=== PATIENT | female | born 2000 | race Caucasian/White ===

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

== ENCOUNTER 2018-03-25 11:58 | Inpatient (IN) | payer OTHER ==
[2018-03-25] MEDS ORDERED: hydrALAZINE HCL 20 MG/ML 1 ML VIAL IVP PRN ×2 (12:16)
[2018-03-25] MEDS ORDERED: LABETALOL 5 MG/ML VIAL MDV IVP PRN ×2 (12:16)
[2018-03-25] MEDS: LACTATED RINGERS 1,000 ML IV SCH ×3 (12:27→23:38)
[2018-03-25 12:44] LABS: Glucose,Whole Blood 102 mg/dL (75-99)
[2018-03-25 13:04] LABS: Basophils % (A) 0 %; Eosinophils # (A) 0.1 k/uL (0-0.7); Eosinophils % (A) 1 %; HCT 25.8 % (34.0-46.0); HGB 8.4 gm/dL (11.4-16.0); Hypochromasia Marked; Lymphocytes # (A) 1.5 k/uL (1.0-4.8); Lymphocytes % (A) 17 %; MCH 24.6 pg (25.0-35.0); MCHC 32.4 g/dL (31.0-37.0); MCV 75.9 fL (80.0-100.0); Microcytosis Slight; Monocytes # (A) 0.3 k/uL (0-1.0); Monocytes % (A) 4 %; Neutrophils # (A) 6.5 k/uL (1.3-7.7); Neutrophils % (A) 76 %; Platelet Count 133 k/uL (150-450); Poikilocytosis Slight; RDW 15.6 % (11.5-15.5); WBC 8.5 k/uL (4.0-11.0)
[2018-03-25 13:11] LABS: ALT 15 U/L (9-52); AST 20 U/L (14-36); Blood Urea Nitrogen 11 mg/dL (7-17); Glucose 99 mg/dL (74-99); LDH 655 U/L (313-618); Uric Acid 3.9 mg/dL (3.7-7.4)
--- NOTE | 2018-03-25 13:27 | US ---
EXAMINATION TYPE: US OB >= 14 wk fetus DATE OF EXAM: 03/25/2018 COMPARISON: None CLINICAL HISTORY: no care TECHNIQUE: Transabdominal (TA) GESTATIONAL AGE / DATING Physician Established: Not yet established Dates by LMP: may 2017 Dates by First Scan: No previous this is first scan Dates by Current Scan: (39 weeks/0 days) EDC: 04/01/2018 SURVEY IUP: Single PLACENTA: Fundal PREVIA: unable to see tip BERNARDA: 0 cm Oligohydramnios CERVICAL LENGTH (transabdominal: norm > 3.0cm): unable to visualize, nurse states not necessary due t o patient already dilated BIOMETRY PRESENTATION: Vertex BPD: 9.4 cm 38 weeks / 2 days HC: 33.2 cm 37 weeks / 6 days AC: 36.9 cm 40 weeks / 5 days FL: 7.9 cm 40 weeks / 2 days ESTIMATED WEIGHT IN GRAMS: 3944 grams ESTIMATED WEIGHT IN LBS/OZ: 8 lbs. 11 oz. HC/AC: 0.9 Normal FL/AC: 21.3 Normal HEART RATE: 136 bpm RHYTHM: Normal No care or prior ultrasound. No fluid seen. Unable to see head well for measurements, head m easurements are probably underestimated due to very low position. IMPRESSION: Could not identify any definite amniotic fluid correlate for oligohydramnios. Note is made rodrigue lul was not requested and therefore not performed. By current scan the estimated fetus is 39 weeks 0 days with a heart rate of 136 bpm in a vertex presentation. Note is made due to the limitations exam the tip of the placenta could not be seen and therefore asse ssment of placental previa is nondiagnostic.
[2018-03-25 13:30] LABS: INR 0.8 (<1.2); Prothrombin Time 9.4 sec (9.0-12.0)
[2018-03-25 13:31] LABS: Appearance,Urine Clear (Clear); Bacteria,Urine Rare /hpf; Bilirubin,Urine Negative (Negative); Blood,Urine Large (Negative); Color,Urine Yellow; Glucose,Urine (UA) Negative (Negative); Ketones,Urine Negative (Negative); Leukocyte Esterase,Urine Large (Negative); Mucus,Urine Rare /hpf; Nitrite,Urine Negative (Negative); Protein,Urine 2+ (Negative); RBC,Urine 6 /hpf (0-5); Specific Gravity,Urine 1.016 (1.001-1.035); Squamous Epithelial Cell,Urine 2 /hpf (0-4); WBC,Urine 32 /hpf (0-5)
[2018-03-25 13:39] LABS: Amphetamine Screen,Urine Not Detected (NotDetected); Barbiturate Screen,Urine Not Detected (NotDetected); Benzodiazepines Screen,Urine Not Detected (NotDetected); Cocaine Screen,Urine Not Detected (NotDetected); Methadone Screen, Urine Not Detected (NotDetected); Opiate Screen,Urine Not Detected (NotDetected); Oxycodone Screen, Urine Not Detected (NotDetected); Phencyclidine Screen,Urine Not Detected (NotDetected); Tricyclic Antidepressant,Urine Not Detected (NotDetected); Urn Cannabinoid Scrn Not Detected (NotDetected)
[2018-03-25] MEDS ORDERED: TERBUTALINE 1 MG/ML VIAL SQ PRN (13:45)
[2018-03-25] MEDS ORDERED: CARBOPROST TROMETHAMINE 250 MCG/ML 1 ML AMP IM PRN (13:45)
[2018-03-25] MEDS ORDERED: LIDOCAINE 0.5% (PF) 5 MG/ML (50 ML SDV) SQ PRN (13:45)
[2018-03-25] MEDS ORDERED: METHYLERGONOVINE 0.2 MG/ML 1 ML AMP IM PRN (13:45)
[2018-03-25] MEDS ORDERED: OXYTOCIN 10 UNIT/ML 1 ML VIAL IM PRN (13:45)
[2018-03-25] MEDS ORDERED: PENICILLIN G POTASSIUM 5,000,000 UNIT in DEXTROSE 5% IN WATER 100 ML IVPB STA ×2 (13:53)
[2018-03-25] MEDS ORDERED: fentaNYL (PF) 50 MCG/ML 5 ML AMP ONE (14:01)
[2018-03-25] MEDS ORDERED: SODIUM CHLORIDE 0.9% 100 ML BAG ONE (14:01)
[2018-03-25] MEDS ORDERED: ROPIVACAINE 5MG/ML 20ML VIAL ONE (14:01)
[2018-03-25 15:28] VITALS: BMI 21.7
[2018-03-25] MEDS ORDERED: LABETALOL SYRINGE 5 MG/ML IVP PRN (15:51)
[2018-03-25] MEDS: OXYTOCIN 20 UNITS/1000 ML NS 1,000 ML IV SCH (16:07)
--- NOTE | 2018-03-25 16:17 | P.HPOB ---
History of Present Illness H&P Date: 03/25/18 Chief Complaint: , vaginal spotting The patient is a 17-year-old 3 para 2001 who presents at 41 and one sevenths weeks by last menstrual period dating with no care during the entire . Upon presentation, she is found to have several significantly elevated blood pressures in the range of 160/110 and was treated with hydralazine which normalized blood pressures after 2 doses. She denied any problems but, as noted above, has had no care whatsoever with an initial intention of adopting the baby out as paternity was uncertain. She denies alcohol or drug use. On labor and delivery, all signs are reassuring and she is found to be 6 cm dilated. Bedside ultrasound suggested that the infant is approximately 39 weeks based upon dating parameters. There is minimal fluid present suggesting the possibility of rupture of membranes for an unknown period of time. Obstetrical history: 3 para 2001 with 2 term vaginal deliveries without complications. Current statistics as are as above and are minimal secondary to no care. labs have been drawn and are noted in the chart. Gynecologic history: Unremarkable with no reported history of any infections to include STDs. Review of Systems Review of systems is confined to history of present illness. Past Medical History Past Medical History: No Reported History, GERD/Reflux History of Any Multi-Drug Resistant Organisms: None Reported Past Surgical History: Orthopedic Surgery Additional Past Surgical History / Comment(s): plate in foot Past Anesthesia/Blood Transfusion Reactions: No Reported Reaction Past Psychological History: No Psychological Hx Reported Smoking Status: Never smoker Past Alcohol Use History: None Reported Past Drug Use History: None Reported - Past Family History Mother Family Medical History: No Reported History Medications and Allergies Home Medications Medication Instructions Recorded Confirmed Type Pnv No.95/Ferrous Fum/Folic AC 1 each PO 03/25/18 History [ Multivitamin Tablet] Allergies Allergy/AdvReac Type Severity Reaction Status Date / Time No Known Allergies Allergy Verified 03/25/18 13:58 Exam Vital Signs Temp Pulse Resp BP Pulse Ox 03/25/18 15:22 98.4 F 99 16 168/114 03/25/18 12:15 98.5 F 93 16 160/109 95 Intake and Output 03/25/18 03/25/18 03/25/18 06:59 14:59 22:59 Intake Total 1100 Balance 1100 Intake: Intake, IV Titration 1100 Amount Lactated Ringers 1,000 ml 1000 @ 125 mls/hr IV .Q8H [facility] Rx#:[id number] Penicillin G Potassium 5, 100 000,000 unit In Dextrose 5% in Water 100 ml @ 100 mls/hr IVPB ONCE STA Rx#: [id number] Other: # Voids 1 Weight 61.235 kg In general, this is a well-developed, well-nourished white female in no acute distress. Her heart has a regular rhythm and rate without murmur. Her lungs are clear to auscultation bilaterally in all dorsey. Her abdomen is gravid, nondistended, has normal active bowel sounds, is soft, nontender, and without any palpable masses aside from uterine fundus. Her extremities are without any cyanosis, clubbing, or significant edema and are nontender to palpation bilaterally. Digital cervical examination most recently performed by the nursing staff demonstrates her cervix to be 7+ centimeters dilated, 80% effaced , vertex in presentation at -1 station. Results Result Diagrams: 03/25/18 12:43 03/25/18 12:43 Abnormal Lab Results - Last 24 Hours (Table) 03/25/18 03/25/18 03/25/18 Range/Units 12:43 12:43 12:43 RBC 3.40 L (3.80-5.40) m/uL Hgb 8.4 L (11.4-16.0) gm/dL Hct 25.8 L (34.0-46.0) % MCV 75.9 L (80.0-100.0) fL MCH 24.6 L (25.0-35.0) pg RDW 15.6 H (11.5-15.5) % Plt Count 133 L (150-450) k/uL Creatinine 0.44 L (0.52-1.04) mg/dL POC Glucose (mg/dL) 102 H (75-99) mg/dL Lactate Dehydrogenase 655 H (313-618) U/L Urine Protein (Negative) Urine Blood (Negative) Ur Leukocyte Esterase (Negative) Urine RBC (0-5) /hpf Urine WBC (0-5) /hpf Urine Bacteria (None) /hpf Urine Mucus (None) /hpf U Random Total Protein (<12) mg/dL 03/25/18 03/25/18 Range/Units 13:16 13:16 RBC (3.80-5.40) m/uL Hgb (11.4-16.0) gm/dL Hct (34.0-46.0) % MCV (80.0-100.0) fL MCH (25.0-35.0) pg RDW (11.5-15.5) % Plt Count (150-450) k/uL Creatinine (0.52-1.04) mg/dL POC Glucose (mg/dL) (75-99) mg/dL Lactate Dehydrogenase (313-618) U/L Urine Protein 2+ H (Negative) Urine Blood Large H (Negative) Ur Leukocyte Esterase Large H (Negative) Urine RBC 6 H (0-5) /hpf Urine WBC 32 H (0-5) /hpf Urine Bacteria Rare H (None) /hpf Urine Mucus Rare H (None) /hpf U Random Total Protein 140 H (<12) mg/dL Assessment and Plan (1) No care in current Current Visit: Yes Status: Acute Code(s): O09.30 - SUPRVSN OF PREG W INSUFFICIENT ANTENAT CARE, UNSP TRIMESTER SNOMED Code(s): 0003619362471 (2) induced hypertension Current Visit: Yes Status: Acute Code(s): O13.9 - GESTATIONAL HTN W/O SIGNIFICANT PROTEINURIA, UNSP TRIMESTER SNOMED Code(s): 73575768 (3) Active labor at term Current Visit: Yes Status: Acute Code(s): ABD7988 - SNOMED Code(s): 41464013 Plan: The patient has been admitted for active management of labor. Antibody prophylaxis has been started and labs ordered. She has been given 2 doses of hydralazine and now is requiring a dose of labetalol to manage her blood pressures. There is consideration for addition of magnesium sulfate though laboratory workup for help syndrome has been otherwise negative. Pitocin augmentation will be added and we will anticipate normal spontaneous vaginal delivery. rehabilitation services manager consult will be sought following delivery for the lack of care.
[2018-03-25] MEDS ORDERED: diphenhydrAMINE 50 MG CAP PO PRN (16:57)
[2018-03-25] MEDS ORDERED: IBUPROFEN 600 MG TAB PO PRN (16:57)
[2018-03-25] MEDS ORDERED: HYDROCORTISONE 2.5% RECTAL CREAM 30 GM TUBE RECTAL PRN (16:57)
[2018-03-25] MEDS ORDERED: SIMETHICONE 80 MG CHEWABLE PO PRN (16:57)
[2018-03-25] MEDS ORDERED: diphenhydrAMINE 50 MG/ML 1 ML VIAL IVP PRN ×2 (16:57)
[2018-03-25] MEDS ORDERED: HYDROcodone/APAP 5-325MG 1 EACH TAB PO PRN (16:57)
[2018-03-25] MEDS ORDERED: diphenhydrAMINE 25 MG CAP PO PRN (16:57)
[2018-03-25] MEDS ORDERED: BENZOCAINE/MENTHOL SPRAY 1 GM/SPRAY AEROSOL TOPICAL PRN (16:57)
[2018-03-25] MEDS ORDERED: WITCH HAZEL 1 EACH MED..PAD TOPICAL PRN (16:57)
[2018-03-25] MEDS ORDERED: HYDROcodone/APAP 7.5-325MG 1 EACH TAB PO PRN (16:57)
[2018-03-25] MEDS ORDERED: ZOLPIDEM 5 MG TAB PO PRN (16:57)
[2018-03-25] MEDS ORDERED: OXYTOCIN 20 UNITS/1000 ML NS 1,000 ML IV SCH (17:00)
[2018-03-25] MEDS ORDERED: MAGNESIUM SULFATE-WATER PMX 4 GM in WATER FOR INJECTION 1 100ML.BAG IVPB ONE (17:02)
--- NOTE | 2018-03-25 17:08 | P.PROBDLV ---
Vaginal Delivery Note - . Vaginal Delivery Note: The patient is a 17-year-old 3 para 2 scissors or 2 admitted through triage at 41 and one sevenths by last menstrual period dating, approximately 39- 0/7 by ultrasound dating on labor and delivery. She is admitted in active labor with a diagnosis of mild preeclampsia or -induced hypertension. Blood pressures upon admission were in the range of 160s over 110s and required 2 doses of hydralazine to normalize. Laboratory workup for preeclampsia was otherwise normal. The patient has had no care during the entire . She denies any other complications during the . On labor and delivery, she had bedside ultrasound performed which demonstrated also minimal fluid leading to the presumptive diagnosis of either oligohydramnios or prolonged rupture of membranes. Antibiotic prophylaxis was started. Ultimately Pitocin augmentation was started after placement of an epidural for analgesia. She progressed fairly quickly to complete and then pushed over the course of 2 contractions to a normal spontaneous vaginal delivery of a viable 8 lbs. 15 oz. baby boy with Apgars of 8 at 1 minute and 9 at 5 minutes delivered in the left occiput anterior position. There was a nuchal cord 1 which was reduced following delivery of the . The placenta was delivered spontaneously, intact, and grossly normal with a grossly normal three-vessel cord inserted approximate 4 cm from the margin of the placental disc. There are no lacerations of the perineum, vagina, or cervix. Estimated blood loss for the case was 200 mL or perhaps less. There were no complications aside from the lack of care in presentation with preeclampsia. All sponge, instrument, and needle counts were correct. Both mother and are resting comfortably in recovery of the has been taken the special care nursery for further evaluation secondary to lack of care and possible prolonged rupture of membranes. The patient will be started on magnesium sulfate 4 g IV loading dose followed by 2 g per hour with the intention of continuing this for 24 hours at which time it will be discontinued. Close attention will be paid to her ongoing blood pressures as well.
[2018-03-25] MEDS ORDERED: PENICILLIN G POTASSIUM 2,500,000 UNIT in DEXTROSE 5% IN WATER 100 ML IVPB SCH ×2 (18:00)
[2018-03-25] MEDS: MAGNESIUM SULFATE-WATER PMX 20 GM in WATER FOR INJECTION 1 500ML.BAG IV SCH (18:17)
[2018-03-25] MEDS ORDERED: MISOPROSTOL 200 MCG TAB RECTAL STA (20:02)
[2018-03-25] MEDS: SENNOSIDES-DOCUSATE SODIUM 1 EACH TAB PO SCH (20:45)
[2018-03-25] MEDS: ACETAMINOPHEN TAB 325 MG TAB PO PRN (21:28)
[2018-03-25] MEDS: LABETALOL 100 MG TAB PO SCH (22:46)
[2018-03-26] MEDS: MAGNESIUM SULFATE-WATER PMX 20 GM in WATER FOR INJECTION 1 500ML.BAG IV SCH (04:26)
[2018-03-26 05:37] LABS: Anisocytosis Slight; Basophils % (A) 0 %; Eosinophils % (A) 0 %; HCT 22.7 % (34.0-46.0); Hypochromasia Moderate; Lymphocytes # (A) 1.6 k/uL (1.0-4.8); Lymphocytes % (A) 18 %; MCH 23.3 pg (25.0-35.0); MCHC 30.7 g/dL (31.0-37.0); MCV 75.7 fL (80.0-100.0); Mean Platelet Volume 8.5; Microcytosis Slight; Monocytes # (A) 0.4 k/uL (0-1.0); Monocytes % (A) 4 %; Neutrophils # (A) 6.7 k/uL (1.3-7.7); Neutrophils % (A) 76 %; Platelet Count 134 k/uL (150-450); Poikilocytosis Slight; RBC 2.99 m/uL (3.80-5.40); RDW 16.1 % (11.5-15.5); WBC 8.9 k/uL (4.0-11.0)
[2018-03-26] MEDS: ACETAMINOPHEN TAB 325 MG TAB PO PRN ×3 (07:15→20:35)
[2018-03-26] MEDS: SENNOSIDES-DOCUSATE SODIUM 1 EACH TAB PO SCH (09:17)
[2018-03-26] MEDS: LABETALOL 100 MG TAB PO SCH ×2 (09:17→20:35)
--- NOTE | 2018-03-26 09:26 | P.PNOBGPC ---
Subjective - Subjective Interval history: Patient is tolerating magnesium well. Patient reports: Reports appetite normal, Reports voiding normally, Reports pain well controlled, Reports ambulating normally : doing well Objective - Vital Signs Latest vital signs: Vital Signs Temp Pulse Resp BP Pulse Ox 03/26/18 09:00 80 16 136/80 98 03/26/18 08:00 79 16 118/73 03/26/18 07:00 97.6 F 98 18 121/81 100 03/26/18 06:00 18 122/81 03/26/18 05:00 89 18 131/85 03/26/18 04:15 97.7 F 83 18 118/76 96 03/26/18 03:00 98.3 F 96 16 122/68 98 03/26/18 02:00 105 H 16 126/77 97 03/26/18 01:00 99 16 122/83 03/26/18 00:00 101 H 16 132/84 03/25/18 22:48 106 H 15 149/99 95 03/25/18 22:00 98.2 F 104 H 15 153/105 97 03/25/18 21:15 109 H 159/104 03/25/18 21:00 100 F H 99 18 153/95 97 03/25/18 19:48 110 H 16 136/95 97 03/25/18 18:48 98.6 F 101 H 18 142/94 98 03/25/18 18:33 99 18 132/87 98 03/25/18 18:18 95 16 143/87 95 03/25/18 17:48 96 16 141/90 95 03/25/18 17:33 99.3 F 112 H 16 133/88 97 03/25/18 17:18 103 H 16 166/96 03/25/18 17:03 99.8 F H 107 H 17 156/99 03/25/18 16:48 99.7 F H 116 H 18 154/94 03/25/18 15:22 98.4 F 99 16 168/114 03/25/18 12:15 98.5 F 93 16 160/109 95 Intake and Output 03/25/18 03/26/18 03/26/18 22:59 06:59 14:59 Intake Total 1648.9 1280.5 250 Output Total 400 1525 400 Balance 1248.9 -244.5 -150 Intake: IV 250 250 Lactated Ringers 1,000 ml 150 150 @ 125 mls/hr IV .Q8H [facility] Rx#:[id number] Magnesium Sulfate-Water 100 100 Pmx 20 gm In Water For Injection 1 500ml.bag @ 2 GM/HR 50 mls/hr IV .Q10H [facility] Rx#:[id number] Intake, IV Titration 1648.9 1030.5 Amount Lactated Ringers 1,000 ml 328 317.5 @ 125 mls/hr IV .Q8H [facility] Rx#:[id number] Magnesium Sulfate-Water 219 713 Pmx 20 gm In Water For Injection 1 500ml.bag @ 2 GM/HR 50 mls/hr IV .Q10H [facility] Rx#:[id number] Magnesium Sulfate-Water 100 Pmx 4 gm In Water For Injection 1 100ml.bag @ 300 mls/hr IVPB ONCE ONE Rx#:[id number] Oxytocin 20 Units/1000 ml 1.9 Ns 1,000 ml @ 1 MILLIUNIT/MIN 3 mls/hr IV .Q24H [facility] Rx#:[id number] Oxytocin 20 Units/1000 ml 1000 Ns 1,000 ml @ Per Protocol IV .Q0M [facility] Rx#: [id number] Output: Urine 400 1525 400 Other: # Voids 400 1 - Exam Extremities: Present: normal Abdomen: Present: normal appearance, soft. Absent: distention, tenderness Incision: Present: normal, dry, intact Uterus: Present: normal, firm - Labs Labs: Abnormal Lab Results - Last 24 Hours (Table) 03/25/18 03/25/18 03/25/18 Range/Units 12:43 12:43 12:43 RBC 3.40 L (3.80-5.40) m/uL Hgb 8.4 L (11.4-16.0) gm/dL Hct 25.8 L (34.0-46.0) % MCV 75.9 L (80.0-100.0) fL MCH 24.6 L (25.0-35.0) pg MCHC (31.0-37.0) g/dL RDW 15.6 H (11.5-15.5) % Plt Count 133 L (150-450) k/uL Creatinine 0.44 L (0.52-1.04) mg/dL POC Glucose (mg/dL) 102 H (75-99) mg/dL Lactate Dehydrogenase 655 H (313-618) U/L Urine Protein (Negative) Urine Blood (Negative) Ur Leukocyte Esterase (Negative) Urine RBC (0-5) /hpf Urine WBC (0-5) /hpf Urine Bacteria (None) /hpf Urine Mucus (None) /hpf U Random Total Protein (<12) mg/dL 03/25/18 03/25/18 03/26/18 Range/Units 13:16 13:16 05:25 RBC 2.99 L (3.80-5.40) m/uL Hgb 7.0 L (11.4-16.0) gm/dL Hct 22.7 L (34.0-46.0) % MCV 75.7 L (80.0-100.0) fL MCH 23.3 L (25.0-35.0) pg MCHC 30.7 L (31.0-37.0) g/dL RDW 16.1 H (11.5-15.5) % Plt Count 134 L (150-450) k/uL Creatinine (0.52-1.04) mg/dL POC Glucose (mg/dL) (75-99) mg/dL Lactate Dehydrogenase (313-618) U/L Urine Protein 2+ H (Negative) Urine Blood Large H (Negative) Ur Leukocyte Esterase Large H (Negative) Urine RBC 6 H (0-5) /hpf Urine WBC 32 H (0-5) /hpf Urine Bacteria Rare H (None) /hpf Urine Mucus Rare H (None) /hpf U Random Total Protein 140 H (<12) mg/dL Assessment and Plan (1) No care in current Current Visit: Yes Status: Acute Code(s): O09.30 - SUPRVSN OF PREG W INSUFFICIENT ANTENAT CARE, UNSP TRIMESTER SNOMED Code(s): 0433568377987 (2) induced hypertension Current Visit: Yes Status: Acute Code(s): O13.9 - GESTATIONAL HTN W/O SIGNIFICANT PROTEINURIA, UNSP TRIMESTER SNOMED Code(s): 74652147 (3) Active labor at term Current Visit: Yes Status: Acute Code(s): AQA5940 - SNOMED Code(s): 23190421 (4) Normal spontaneous vaginal delivery Current Visit: Yes Status: Acute Code(s): O80 - ENCOUNTER FOR FULL-TERM UNCOMPLICATED DELIVERY SNOMED Code(s): 00203006 (5) Preeclampsia Current Visit: Yes Status: Acute Code(s): O14.90 - UNSPECIFIED PRE-ECLAMPSIA , UNSPECIFIED TRIMESTER SNOMED Code(s): 779257042 Plan: Magnesium sulfate will be continued until 24 hours postdelivery at approximately 1700 hrs. Blood pressures are relatively stable with the addition of labetalol 100 mg twice daily. The currently remains and special care on oxygen supplementation but will have an attempted wean today. The patient has decided to keep the baby and adoption social worker consult is pending. Continue routine care with possible discharge home tomorrow pending stability of blood pressures.
[2018-03-26 15:29] LABS: N. gonorrhoeae,PCR Negative (Neg,Equiv); Neisseria Source Urine
[2018-03-26 15:37] LABS: C. trachomatis,PCR Positive (Neg,Equiv); Chlamydia trachomatis Source Urine
[2018-03-26] MEDS: OXYTOCIN 20 UNITS/1000 ML NS 1,000 ML IV SCH (17:30)
[2018-03-27] MEDS: SENNOSIDES-DOCUSATE SODIUM 1 EACH TAB PO SCH ×2 (02:25→13:30)
[2018-03-27] MEDS: MAGNESIUM SULFATE-WATER PMX 20 GM in WATER FOR INJECTION 1 500ML.BAG IV SCH (02:26)
[2018-03-27 04:29] LABS: HIV 1 AB Non-Reactive (Non-Reactive); HIV AB P24 Non-Reactive (Non-Reactive); HIV P24 AG Non-Reactive (Non-Reactive)
[2018-03-27 06:30] LABS: Basophils % (A) 0 %; Eosinophils # (A) 0.1 k/uL (0-0.7); Eosinophils % (A) 2 %; Hypochromasia Marked; Lymphocytes # (A) 1.6 k/uL (1.0-4.8); Lymphocytes % (A) 25 %; MCH 24.3 pg (25.0-35.0); MCHC 31.8 g/dL (31.0-37.0); MCV 76.5 fL (80.0-100.0); Mean Platelet Volume 6.6; Microcytosis Slight; Monocytes # (A) 0.3 k/uL (0-1.0); Monocytes % (A) 4 %; Neutrophils # (A) 4.3 k/uL (1.3-7.7); Neutrophils % (A) 67 %; Platelet Count 133 k/uL (150-450); Poikilocytosis Slight; RDW 15.8 % (11.5-15.5); WBC 6.4 k/uL (4.0-11.0)
[2018-03-27 06:38] LABS: HGB 6.3 gm/dL (11.4-16.0)
[2018-03-27 06:39] LABS: HCT 19.9 % (34.0-46.0)
[2018-03-27 06:42] LABS: ALT 21 U/L (9-52); AST 20 U/L (14-36); Blood Urea Nitrogen 9 mg/dL (7-17); LDH 1272 U/L (313-618)
[2018-03-27 06:59] LABS: Appearance,Urine Cloudy (Clear); Bacteria,Urine Rare /hpf; Bilirubin,Urine Negative (Negative); Blood,Urine Large (Negative); Color,Urine Red; Glucose,Urine (UA) Negative (Negative); Ketones,Urine Negative (Negative); Leukocyte Esterase,Urine Large (Negative); Mucus,Urine Few /hpf; Nitrite,Urine Negative (Negative); PH, Urine 6.5 (5.0-8.0); Protein,Urine 2+ (Negative); RBC,Urine >182 /hpf (0-5); Specific Gravity,Urine 1.026 (1.001-1.035); Squamous Epithelial Cell,Urine 4 /hpf (0-4); WBC,Urine >182 /hpf (0-5)
[2018-03-27] MEDS: ACETAMINOPHEN TAB 325 MG TAB PO PRN (07:56)
[2018-03-27 08:19] VITALS: RESP 18
--- NOTE | 2018-03-27 09:33 | P.DS ---
Providers Date of admission: 03/25/18 13:19 Expected date of discharge: 03/27/18 Attending physician: Nicanor Salcido Primary care physician: Stated None - Discharge Diagnosis(es) (1) Active labor at term Current Visit: Yes Status: Acute (2) No care in current Current Visit: Yes Status: Acute (3) Normal spontaneous vaginal delivery Current Visit: Yes Status: Acute (4) Nuchal cord, delivered, current hospitalization Current Visit: Yes Status: Acute (5) Oligohydramnios Current Visit: Yes Status: Acute (6) Preeclampsia Current Visit: Yes Status: Acute Hospital Course: This is a 17-year-old 3 para 2 that presented to labor and delivery at 41 and one sevenths weeks by last menstrual period with no care during her entire . Upon presentation to OB she was found have several significantly elevated blood pressures in the range of 160/110 and was treated with hydralazine which normalized her blood pressures after 2 doses. She denied any problems but as stated above had no care during this . She denies a color drug use. On labor and delivery she had a bedside ultrasound which revealed the fetus to be around 39 weeks and minimal fluid around the baby was noted suggestive of rupture of membranes at some point in time versus oligohydramnios. Patient was found to be 6 cm dilated she was admitted to labor and delivery. Antibiotic prophylaxis was begun secondary to unknown care and presumed prolonged rupture of membranes, but Pitocin augmentation and of labor was begun in addition. Patient became uncomfortable eventually requesting an epidural for analgesia this was placed by anesthesia without difficulty. Patient progressed to complete began pushing and had a normal spontaneous vaginal delivery of a viable male infant weight of 8 lbs. 15 oz. and optic Apgars of 8 and 9 at one and 5 minutes respectively. There were no vaginal lacerations that necessitate repair after delivery. Following delivery patient was started on magnesium sulfate given her elevated blood pressures and preeclampsia diagnosis. Patient's blood pressures started to normalize after labetalol 100 mg twice daily was begun. Repeat labs were also normal in nature with the exception of anemia and hemoglobin of 6.3. On this day #2 patient is feeling well. She denies concerns she is ambulating and voiding without difficulty. She states her lochia is minimal. Infant remains in the nursery at this time for antibiotics. Patient Condition at Discharge: Good Plan - Discharge Summary New Discharge Prescriptions: No Action Pnv No.95/Ferrous Fum/Folic AC [ Multivitamin Tablet] 1 each PO DAILY Discharge Medication List Pnv No.95/Ferrous Fum/Folic AC [ Multivitamin Tablet] 1 each PO DAILY [History] Follow up Appointment(s)/Referral(s): Nicanor Salcido MD [STAFF PHYSICIAN] - 1 Week Patient Instructions/Handouts: Vaginal Delivery (DC), Vaginal Delivery (GEN) Activity/Diet/Wound Care/Special Instructions: No tub baths or intercourse until 6 weeks Discharge Disposition: HOME SELF-CARE
[2018-03-27] MEDS: LABETALOL 100 MG TAB PO SCH (10:37)
[2018-03-27] MEDS ORDERED: AZITHROMYCIN 500 MG TAB PO STA (11:38)
[2018-03-27 16:20] VITALS: BP 128/91; PULSE 99; TEMP 98.7
== END 2018-03-27 16:21 | disposition home or self-care (01) | DRG 806 ==
LOC: FBPOP 11:58 → 4FBP 13:19
PROVIDERS: ADMIT Obstetrics & Gynecology; ATTEND Obstetrics & Gynecology
PROC: 10E0XZZ Delivery of Products of Conception, External Approach (ICD-10-PCS; principal; 2018-03-25)
PROC: 00HU33Z Insertion of Infusion Device into Spinal Canal, Percutaneous Approach (ICD-10-PCS; 2018-03-25)
PROC: 3E0R3BZ Introduction of Anesthetic Agent into Spinal Canal, Percutaneous Approach (ICD-10-PCS; 2018-03-25)
DX: O14.04 Mild to moderate pre-eclampsia, complicating childbirth (principal); O41.03X0 Oligohydramnios, third trimester, not applicable or unspecified; Z37.0 Single live birth; O13.4 Gestational [pregnancy-induced] hypertension without significant proteinuria, complicating childbirth; O69.81X0 Labor and delivery complicated by cord around neck, without compression, not applicable or unspecified; O99.02 Anemia complicating childbirth; D64.9 Anemia, unspecified; Z3A.39 39 weeks gestation of pregnancy; Z79.899 Other long term (current) drug therapy
CPT/HCPCS: 59025; 76805; 80306; 81001; 82565; 82570; 82947; 83036; 83615; 84156; 84450; 84460; 84520; 84550; 85025; 85384; 85610; 86762; 86780; 86850; 86900; 86901; 87340; 87390; 87491; 87591; 88307; 96361; 96374; 96375; 99215